=== PATIENT | female | born 1990 | race African-American/Black ===

== ENCOUNTER 2016-10-06 16:29 | Emergency (ER) | payer SELFPAY ==
[~2016-10-06] VITALS: Ht 154.9 cm; Wt 65.8 kg
[2016-10-06 17:45] VITALS: BP 125/65
[2016-10-06 18:06] LABS: BILIRUBIN,URINE NEGATIVE (NEG); GLUCOSE,URINE NEGATIVE (NEG); NITRITE,URINE NEGATIVE (NEG); PROTEIN,URINE NEGATIVE (NEG-TRACE); UROBILINOGEN,URINE 0.2 mg/dL (0.2 mg/dL)
[2016-10-06 18:33] LABS: BACTERIA,URINE FEW /HPF (0-FEW); SQUAMOUS EPITHELIAL CELL,UR OCC /LPF
[2016-10-06] MEDS ORDERED: NITR100C62 PO (18:59)
--- NOTE | 2016-10-06 18:59 | PHYS DOC ---
Past Medical History Past Medical History: UTI Past Surgical History: No Surgical History Alcohol Use: Rarely Drug Use: Marijuana Adult General Chief Complaint Chief Complaint: ABDOMINAL PAIN HPI HPI 25-year-old female presents with 2 day history of suprapubic discomfort. She states the pain radiates to her back. She denies any vaginal bleeding or discharge. Patient states she feels like she may have urinary tract infection. She denies any fever chills sweats nausea vomiting or flank pain.] Review of Systems Review of Systems Constitutional: Denies fever or chills [] Eyes: Denies change in visual acuity, redness, or eye pain [] HENT: Denies nasal congestion or sore throat [] Respiratory: Denies cough or shortness of breath [] Cardiovascular: No additional information not addressed in HPI [] GI: Per history of present illness [] : Denies dysuria or hematuria [] Musculoskeletal: Denies back pain or joint pain [] Integument: Denies rash or skin lesions [] Neurologic: Denies headache, focal weakness or sensory changes [] Endocrine: Denies polyuria or polydipsia [] Allergies Allergies Allergies Coded Allergies Type Severity Reaction Last Updated Verified Sulfa (Sulfonamide Antibiotics) Allergy Intermediate 05/01/15 Yes Physical Exam Physical Exam Constitutional: Well developed, well nourished, no acute distress, non-toxic appearance. [] HENT: Normocephalic, atraumatic, bilateral external ears normal, oropharynx moist, no oral exudates, nose normal. [] Eyes: PERRLA, EOMI, conjunctiva normal, no discharge. [] Neck: Normal range of motion, no tenderness, supple, no stridor. [] Cardiovascular:Heart rate regular rhythm, no murmur [] Lungs & Thorax: Bilateral breath sounds clear to auscultation [] Abdomen: Bowel sounds normal, soft, no tenderness, no masses, no pulsatile masses. [] Skin: Warm, dry, no erythema, no rash. [] Back: No tenderness, no CVA tenderness. [] Extremities: No tenderness, no cyanosis, no clubbing, ROM intact, no edema. [] Neurologic: Alert and oriented X 3, normal motor function, normal sensory function, no focal deficits noted. [] Psychologic: Affect normal, judgement normal, mood normal. [] Current Patient Data Vital Signs Vital Signs Date Time Temp Pulse Resp B/P Pulse Ox O2 Delivery O2 Flow Rate FiO2 10/06/16 17:45 98.9 67 20 125/65 100 Room Air 98.9 Lab Values Laboratory Tests Test 10/06/16 16:44 10/06/16 17:40 POC Urine HCG, Qualitative Hcg negative (Negative) Urine Color Yellow Urine Clarity Clear Urine pH 6.0 Urine Specific [place] <=1.005 Urine Protein Negativemg/dL (NEG-TRACE) Urine Glucose (UA) Negativemg/dL (NEG) Urine Ketones (Stick) Negativemg/dL (NEG) Urine Blood Large (NEG) Urine Nitrite Negative (NEG) Urine Bilirubin Negative (NEG) Urine Urobilinogen Dipstick 0.2mg/dL (0.2 mg/dL) Urine Leukocyte Esterase Moderate (NEG) Urine RBC 3-5/HPF (0-2) Urine WBC 5-10/HPF (0-4) Urine Squamous Epithelial Cells Occ/LPF Urine Bacteria Few/HPF (0-FEW) Urine Mucus Slight/LPF EKG EKG [] Radiology/Procedures Radiology/Procedures [] Course & Med Decision Making Course & Med Decision Making Pertinent Labs and Imaging studies reviewed. (See chart for details) [] Dragon Disclaimer Dragon Disclaimer This electronic medical record was generated, in whole or in part, using a voice recognition dictation system. Departure Departure Impression: Primary Impression: Urinary tract infection Disposition: 01 HOME, SELF-CARE Condition: STABLE Referrals: NO PCP (PCP) Patient Instructions: Urinary Tract Infection Additional Instructions: Thank you for allowing us to participate in your care today. Followup with your primary care physician in 3 days if your symptoms do not improve. Return to the emergency department you have any new or concerning findings. This should be evaluated by the primary care physician and any necessary consulting services for continued management within a few days after discharge. Return to emergency room if you have any new or concerning symptoms including but not limited to fever, chills, nausea, vomiting, intractable pain, any new rashes, chest pain, shortness of air, uncontrolled bleeding, difficulty breathing, and/or vision loss. You may have been prescribed medication that can change in your level of thinking and ability to operate machinery. These medications include hydrocodone and Ativan. Also, Benadryl has been known to do this as well. Be sure to check with your pharmacist and ask if the medications you've prescribed can affect your level of consciousness. I recommend not operating heavy machinery or driving while on medication such as these. Scripts Nitrofurantoin Monohyd/M-Cryst (Macrobid 100 Mg Capsule)100 Mg Capsule1 Cap PO BID UTI #10 CAP Prov:KUNAL SYED DO 10/06/16 Problem Qualifiers Primary Impression: Urinary tract infection Urinary tract infection type: acute cystitis Hematuria presence: without hematuria Qualified Code: N30.00 - Acute cystitis without hematuria KUNAL SYED DO Oct 06, 2016 18:59
== END 2016-10-06 19:07 | disposition home or self-care (01) ==
LOC: ER 16:29
DX: N30.00 Acute cystitis without hematuria (principal); F12.10 Cannabis abuse, uncomplicated; Z88.2 Allergy status to sulfonamides
CPT/HCPCS: 81001; 81025; 87086; 99284

== ENCOUNTER 2016-12-27 22:03 | Emergency (ER) | payer SELFPAY ==
[~2016-12-27] VITALS: Ht 154.9 cm; Wt 59.9 kg
[~2016-12-27 22:03] MED LIST: NITR100C62 PO
[2016-12-27 22:22] VITALS: BP 122/77
[2016-12-27] MEDS ORDERED: IV NORMAL SALINE 1000ML BAG 1,000 ML IV SCH (22:45)
[2016-12-27] MEDS ORDERED: 0.9 % SODIUM CHLORIDE 10 ML DISP.SYRIN. IV PRN (22:45)
[2016-12-27] MEDS ORDERED: HYDROmorphone 2 MG/ML VIAL IV/SQ PRN (22:45)
[2016-12-27 22:51] LABS: BILIRUBIN,URINE SMALL (NEG); GLUCOSE,URINE NEGATIVE (NEG); NITRITE,URINE NEGATIVE (NEG); PROTEIN,URINE 100 mg/dL (NEG-TRACE)
--- NOTE | 2016-12-27 22:51 | PHYS DOC ---
Past Medical History Past Medical History: No Pertinent History, UTI Past Surgical History: No Surgical History Alcohol Use: Rarely Drug Use: Marijuana Adult General Chief Complaint Chief Complaint: [facility] HPI Patient is a 26 year old Afro-[place] female with a history of abdominal pain for the last several months progressively getting worse now pain localized in the periumbilical and suprapubic region with some spotting and bleeding. Patient [facility] about 7 months ago before she began having pain 3 months ago. She was referred to an RETIREMENT MANAGER Dr. concepcion for evaluation who completed a pelvic examination demonstrated a particular findings. An ultrasound was ordered and completed several weeks later looking for the IUD that was apparently placed. According to the ultrasound read provided by family patient's IUD has migrated superiorly into the uterus. For this ultrasound the patient has had multiple pelvic exams multiple Pap smears with no apparent findings. Now her pain is gotten progressively worse describes a sharp stabbing. Umbilical he and over the suprapubic region with no UTI symptoms, no vomiting, no diarrhea, no vaginal bleeding or discharge that is new or changed. She denies fevers, chills or other symptoms other than mild back pain and nausea secondary to the pain. She does also complain that when she has her spots of pain she begins to have tingling and numbness in her feet and hands bilaterally that resolves spontaneously after some time. She has had sexual transmitted diseases in the past Chlamydia with a test of cure. On initial presentation differential diagnosis includes appendicitis, gallstones , small bowel section, UTI, pyonephritis, kidney stones, ectopic , ovarian torsion, pelvic inflammatory disease, cervicitis, pelvic trauma, vascular congestion syndrome Review of Systems Review of Systems Constitutional: Denies fever or chills [] Eyes: Denies change in visual acuity, redness, or eye pain [] HENT: Denies nasal congestion or sore throat [] Respiratory: Denies cough or shortness of breath [] Cardiovascular: No additional information not addressed in HPI [] GI: Legs of abdominal pain with nausea but no vomiting diarrhea or bloody stools. : Denies dysuria or hematuria she has had a little vaginal spotting after the exam. Musculoskeletal: Denies back pain or joint pain [] Integument: Denies rash or skin lesions [] Neurologic: Denies headache, focal weakness or sensory changes [] Endocrine: Denies polyuria or polydipsia [] Current Medications Current Medications Current Medications Medications (Trade) Dose Ordered Sig/Dangelo Start Time Stop Time Status Last Admin Dose Admin Hydromorphone HCl (Dilaudid) 1 mg PRN Q15MIN PRN 12/27/16 22:45 12/28/16 22:44 12/27/16 23:07 1 MG Info (Do NOT chart on this entry -- for MONITORING) 1 each PRN DAILY PRN 12/27/16 23:30 12/29/16 23:29 Iohexol (Omnipaque 300 Mg/ml) 75 ml 1X ONCE 12/27/16 23:30 12/27/16 23:31 DC Ondansetron HCl (Zofran) 4 mg 1X ONCE 12/27/16 23:00 12/27/16 23:01 DC 12/27/16 23:07 4 MG Sodium Chloride (Normal Saline Flush) 10 ml QSHIFT PRN 12/27/16 22:45 Allergies Allergies Allergies Coded Allergies Type Severity Reaction Last Updated Verified Sulfa (Sulfonamide Antibiotics) Allergy Intermediate 05/01/15 Yes Physical Exam Physical Exam Constitutional: Well developed, well nourished, no acute distress, non-toxic appearance. [] HENT: Normocephalic, atraumatic, bilateral external ears normal, oropharynx moist, Eyes: PERRLA, EOMI, conjunctiva normal, no discharge. [] Neck: Normal range of motion, no tenderness, supple, no stridor. [] Cardiovascular:Heart rate regular rhythm, no murmur [] Lungs & Thorax: Bilateral breath sounds clear to auscultation [] Abdomen: Bowel sounds normal, soft abdomen but tender along the periumbilical region and over the umbilicus. With no obvious signs of deformity Skin: Warm, dry, no erythema, no rash. [] Back: No tenderness, no CVA tenderness. [] Extremities: No tenderness, no cyanosis, no clubbing, ROM intact, no edema. [] Neurologic: Alert and oriented X 3, normal motor function, normal sensory function, no focal deficits noted. [] Psychologic: Affect normal, judgement normal, mood normal. [] Current Patient Data Vital Signs Vital Signs Date Time Temp Pulse Resp B/P (MAP) Pulse Ox O2 Delivery O2 Flow Rate FiO2 12/27/16 22:22 98.6 95 18 122/77 (92) 98 Room Air 98.6 Lab Values Laboratory Tests Test 12/27/16 21:27 12/27/16 22:15 12/27/16 23:00 POC Urine HCG, Qualitative Hcg negative (Negative) Urine Collection Type Unknown Urine Color Juliana Urine Clarity Cloudy Urine pH 6.0 Urine Specific [place] >=1.030 Urine Protein 100 mg/dL (NEG-TRACE) Urine Glucose (UA) Negative mg/dL (NEG) Urine Ketones (Stick) Trace mg/dL (NEG) Urine Blood Large (NEG) Urine Nitrite Negative (NEG) Urine Bilirubin Small (NEG) Urine Urobilinogen Dipstick 1.0 mg/dL (0.2 mg/dL) Urine Leukocyte Esterase Large (NEG) Urine RBC Tntc /HPF (0-2) Urine WBC Tntc /HPF (0-4) Urine Squamous Epithelial Cells Occ /LPF Urine Bacteria Moderate /HPF (0-FEW) Urine Mucus Slight /LPF White Blood Count 7.3 x10^3/uL (4.0-11.0) Red Blood Count 3.91 x10^6/uL (3.50-5.40) Hemoglobin 11.4 g/dL (12.0-15.5) L Hematocrit 34.3 % (36.0-47.0) L Mean Corpuscular Volume 88 fL (79-100) Mean Corpuscular Hemoglobin 29 pg (25-35) Mean Corpuscular Hemoglobin Concent 33 g/dL (31-37) Red Cell Distribution Width 13.9 % (11.5-14.5) Platelet Count 310 x10^3/uL (140-400) Neutrophils (%) (Auto) 47 % (31-73) Lymphocytes (%) (Auto) 37 % (24-48) Monocytes (%) (Auto) 10 % (0-9) H Eosinophils (%) (Auto) 6 % (0-3) H Basophils (%) (Auto) 1 % (0-3) Neutrophils # (Auto) 3.4 x10^3uL (1.8-7.7) Lymphocytes # (Auto) 2.7 x10^3/uL (1.0-4.8) Monocytes # (Auto) 0.7 x10^3/uL (0.0-1.1) Eosinophils # (Auto) 0.4 x10^3/uL (0.0-0.7) Basophils # (Auto) 0.1 x10^3/uL (0.0-0.2) Sodium Level 141 mmol/L (136-145) Potassium Level 3.5 mmol/L (3.5-5.1) Chloride Level 106 mmol/L (98-107) Carbon Dioxide Level 27 mmol/L (21-32) Anion Gap 8 (6-14) Blood Urea Nitrogen 12 mg/dL (7-20) Creatinine 1.1 mg/dL (0.6-1.0) H Estimated GFR (Cockcroft-Gault) 73.8 BUN/Creatinine Ratio 11 (6-20) Glucose Level 83 mg/dL (70-99) Calcium Level 8.7 mg/dL (8.5-10.1) Total Bilirubin 0.3 mg/dL (0.2-1.0) Aspartate Amino Transferase (AST) 12 U/L (15-37) L Alanine Aminotransferase (ALT) 14 U/L (14-59) Alkaline Phosphatase 61 U/L (46-116) Total Protein 7.3 g/dL (6.4-8.2) Albumin 3.7 g/dL (3.4-5.0) Albumin/Globulin Ratio 1.0 (1.0-1.7) Lipase 107 U/L (73-393) Laboratory Tests 12/27/16 23:00 Laboratory Tests 12/27/16 23:00 EKG EKG [] Radiology/Procedures Radiology/Procedures [facility] [address] [place], [place] [id number] IMAGING REPORT Signed PATIENT: LILLY MORAN ACCOUNT: [id number] : 1990 LOCATION: ER AGE: 26 SEX: F EXAM STATUS: REG ER ORD. PHYSICIAN: DAGOBERTO HERZOG MD REASON: diffuse lower abdominal pain PROCEDURE: CT ABD PELV W/ IV CONTRST ONLY CT abdomen and pelvis with contrast: Reason for examination: Diffuse low abdominal pain for 2 months. Displaced IUD on 12/25/2016. Helical images were obtained through the abdomen and pelvis with intravenous administration of 75 cc Omnipaque 300. Reconstruction was performed in sagittal and coronal planes. Exposure: One or more of the following individualized dose reduction techniques were utilized for this examination: 1. Automated exposure control 2. Adjustment of the mA and/or kV according to patient size 3. Use of iterative reconstruction technique. The lung bases are clear. The heart size is normal with no pericardial effusion. No abnormalities seen of the liver, spleen, gallbladder, adrenal glands or pancreas. The kidneys show no renal masses, hydronephrosis, renal calculi or evidence of obstructive uropathy. The abdominal aorta and inferior vena cava show no abnormalities. There are no abnormally dilated loops of bowel or thickened bowel viveros. There is no evidence of bowel obstruction. There is no evidence of diverticulosis or diverticulitis. No abnormality seen at the bladder. An IUD is present within the endometrial cavity. There does appear to be some fluid within the endometrial cavity. There are a few small follicles in the ovaries. No free fluid is seen. No acute bony abnormalities are evident. IMPRESSION: IUD within the endometrial cavity. Fluid within endometrial cavity. No other abnormality seen in the abdomen or pelvis. Electronically signed by: Viv Finney MD (12/28/2016 12:35 AM) [] Course & Med Decision Making Course & Med Decision Making Pertinent Labs and Imaging studies reviewed. (See chart for details) Patient presents with crampy abdominal pain for some months with an IUD that may be misplaced. He was concerning presentation for possible ectopic . IUD is no longer functioning as it normally should be is a physical barrier. At this point patient's abdominal pain is localized suprapubically with no clear UTI symptoms no vaginal discharge at this time. Patient is one to know where the IUD was. CT scan result revealed IUD. In the uterus migrating from its location within the cervix to an area inside the uterus. There is some homogeneous fluid around this particular IUD which may explain why she has spotting intermittently. Patient's white count is normal urinalysis reveals white blood cells, bacteria and leuk esterase consistent with a UTI. Given suprapubic pain patient is suffered from I will treat her with empiric antibiotics. I also advised her to follow-up with her RETIREMENT MANAGER doctor Tara to help physically remove this IUD that is no longer in the right location. Impression abdominal pain likely secondary to IUD migration into the uterus and UTI. Treatment plan Lortab, Mitra, Luis, PCP follow-up with referral to OB/ [employer] immediately. Disposition: Discussed with family at bedside RETIREMENT MANAGER referral 24-48 hours for immediate evaluation for possible operative removal of IUD. [] Dragon Disclaimer Dragon Disclaimer This electronic medical record was generated, in whole or in part, using a voice recognition dictation system. Departure Departure Impression: Primary Impression: Urinary tract infection Additional Impressions: Foreign body in uterus, any part Abdominal pain Disposition: HOME, SELF-CARE Condition: IMPROVED Referrals: NO PCP (PCP) Patient Instructions: Abdominal Pain, Urinary Tract Infection Additional Instructions: These follow-up with her RETIREMENT MANAGER in 24-48 hours for immediate evaluation and removal of the IUD. Please return for any new or increasing symptoms like pain out of proportion on exam fevers greater 102.2 despite treatment or if you have any questions or concerns. Problem Qualifiers DAGOBERTO HERZOG MD Dec 27, 2016 22:51
[2016-12-27 23:00] LABS: RBC,URINE TNTC /HPF (0-2)
[2016-12-27] MEDS ORDERED: ONDANSETRON PF 4 MG/2 ML VIAL. IV ONE (23:00)
[2016-12-27 23:01] LABS: BACTERIA,URINE MODERATE /HPF (0-FEW); SQUAMOUS EPITHELIAL CELL,UR OCC /LPF; WBC,URINE TNTC /HPF (0-4)
[2016-12-27 23:24] LABS: BASO # 0.1 x10^3/uL (0.0-0.2); BASO % 1 % (0-3); EOS % 6 % (0-3); HEMATOCRIT 34.3 % (36.0-47.0); HEMOGLOBIN 11.4 g/dL (12.0-15.5); LYMPH # 2.7 x10^3/uL (1.0-4.8); LYMPH % 37 % (24-48); MEAN CORPUSCULAR HEMOGLOBIN 29 pg (25-35); MEAN CORPUSCULAR HGB CONC 33 g/dL (31-37); MEAN CORPUSCULAR VOLUME 88 fL (79-100); MONO % 10 % (0-9); NEUT % 47 % (31-73); PLATELET COUNT 310 x10^3/uL (140-400); RED BLOOD COUNT 3.91 x10^6/uL (3.50-5.40); RED CELL DISTRIBUTION WIDTH 13.9 % (11.5-14.5); WHITE BLOOD COUNT 7.3 x10^3/uL (4.0-11.0)
[2016-12-27] MEDS ORDERED: IOHEXOL 300 MG/ML 75 ML VIAL IV ONE (23:30)
[2016-12-27] MEDS ORDERED: CONTRAST GIVEN MC PRN (23:30)
[2016-12-27 23:39] LABS: CALCIUM 8.7 mg/dL (8.5-10.1); CREATININE 1.1 mg/dL (0.6-1.0); GFR 73.8; POTASSIUM 3.5 mmol/L (3.5-5.1)
[2016-12-27 23:44] LABS: ALBUMIN 3.7 g/dL (3.4-5.0); TOTAL BILIRUBIN 0.3 mg/dL (0.2-1.0); TOTAL PROTEIN 7.3 g/dL (6.4-8.2)
--- NOTE | 2016-12-28 00:38 | RAD ---
CT abdomen and pelvis with contrast: Reason for examination: Diffuse low abdominal pain for 2 months. Displaced IUD on 12/25/2016. Helical images were obtained through the abdomen and pelvis with intravenous administration of 75 cc Omnipaque 300. Reconstruction was performed in sagittal and coronal planes. Exposure: One or more of the following individualized dose reduction techniques were utilized for this examination: 1. Automated exposure control 2. Adjustment of the mA and/or kV according to patient size 3. Use of iterative reconstruction technique. The lung bases are clear. The heart size is normal with no pericardial effusion. No abnormalities seen of the liver, spleen, gallbladder, adrenal glands or pancreas. The kidneys show no renal masses, hydronephrosis, renal calculi or evidence of obstructive uropathy. The abdominal aorta and inferior vena cava show no abnormalities. There are no abnormally dilated loops of bowel or thickened bowel viveros. There is no evidence of bowel obstruction. There is no evidence of diverticulosis or diverticulitis. No abnormality seen at the bladder. An IUD is present within the endometrial cavity. There does appear to be some fluid within the endometrial cavity. There are a few small follicles in the ovaries. No free fluid is seen. No acute bony abnormalities are evident. IMPRESSION: IUD within the endometrial cavity. Fluid within endometrial cavity. No other abnormality seen in the abdomen or pelvis. Electronically signed by: Viv Finney MD (12/28/2016 12:35 AM)
[2016-12-28] MEDS ORDERED: CIPR500T94 PO (01:04)
[2016-12-28] MEDS ORDERED: HYDR-2758 PO (01:04)
[2016-12-28] MEDS ORDERED: PHEN-318 PO (01:04)
== END 2016-12-28 01:14 | disposition home or self-care (01) ==
LOC: ER 22:03
DX: T19.3XXA Foreign body in uterus, initial encounter (principal); N39.0 Urinary tract infection, site not specified; Z88.1 Allergy status to other antibiotic agents; Z97.5 Presence of (intrauterine) contraceptive device; X58.XXXA Exposure to other specified factors, initial encounter; Y93.89 Activity, other specified; Y92.89 Other specified places as the place of occurrence of the external cause; Y99.8 Other external cause status
CPT/HCPCS: 36415; 74177; 80053; 81001; 81025; 83690; 85027; 87086; 96361; 96374; 96375; 99285; J1170; J2405; J7030

== ENCOUNTER 2017-08-21 12:07 | Emergency (ER) | payer OTHER ==
[2017-08-21 12:44] LABS: ADD MAN DIFF? NO
[2017-08-21 12:44] LABS: URINE HCG POC HCG NEGATIVE (Negative)
[2017-08-21 12:47] LABS: BILIRUBIN,URINE SMALL (NEG); CLARITY,URINE TURBID; COLOR,URINE RED; GLUCOSE,URINE NEGATIVE (NEG); NITRITE,URINE POSITIVE (NEG); PH,URINE 6.5; PROTEIN,URINE >=300 mg/dL (NEG-TRACE)
[2017-08-21 12:48] LABS: BASO # 0.1 x10^3/uL (0.0-0.2); BASO % 0 % (0-3); EOS # 0.1 x10^3/uL (0.0-0.7); EOS % 1 % (0-3); LYMPH # 1.4 x10^3/uL (1.0-4.8); LYMPH % 12 % (24-48); MEAN CORPUSCULAR HEMOGLOBIN 31 pg (25-35); MEAN CORPUSCULAR HGB CONC 33 g/dL (31-37); MEAN CORPUSCULAR VOLUME 92 fL (79-100); MONO # 0.6 x10^3/uL (0.0-1.1); MONO % 5 % (0-9); NEUT # 9.7 x10^3uL (1.8-7.7); NEUT % 82 % (31-73); PLATELET COUNT 254 x10^3/uL (140-400); RED BLOOD COUNT 3.91 x10^6/uL (3.50-5.40); RED CELL DISTRIBUTION WIDTH 12.9 % (11.5-14.5); WHITE BLOOD COUNT 11.7 x10^3/uL (4.0-11.0)
[2017-08-21] MEDS: KETOROLAC 15 MG/ML VIAL. IV (12:48)
[2017-08-21] MEDS: ONDANSETRON PF 4 MG/2 ML VIAL. IV (12:48)
[2017-08-21] MEDS: IV NORMAL SALINE 1000ML BAG 1,000 ML IV (12:48)
[2017-08-21 13:00] LABS: ANION GAP 10 (6-14); BLOOD UREA NITROGEN 10 mg/dL (7-20); BUN/CREATININE RATIO 11 (6-20); CALCIUM 8.8 mg/dL (8.5-10.1); CARBON DIOXIDE 26 mmol/L (21-32); CHLORIDE 106 mmol/L (98-107); CREATININE 0.9 mg/dL (0.6-1.0); GFR 93.1; GLUCOSE 93 mg/dL (70-99); POTASSIUM 3.3 mmol/L (3.5-5.1); SODIUM 142 mmol/L (136-145)
[2017-08-21 13:01] LABS: RBC,URINE >40 /HPF (0-2)
[2017-08-21 13:02] LABS: BACTERIA,URINE FEW /HPF (0-FEW); SQUAMOUS EPITHELIAL CELL,UR MOD /LPF; WBC,URINE >40 /HPF (0-4)
[2017-08-21 13:08] LABS: ALBUMIN 4.1 g/dL (3.4-5.0); ALBUMIN/GLOBULIN RATIO 1.2 (1.0-1.7); ALK PHOS 54 U/L (46-116); ALT (SGPT) 10 U/L (14-59); AST (SGOT) 14 U/L (15-37); LIPASE 67 U/L (73-393); TOTAL BILIRUBIN 0.5 mg/dL (0.2-1.0); TOTAL PROTEIN 7.5 g/dL (6.4-8.2)
== END 2017-08-21 14:57 | disposition home or self-care (01) ==
LOC: ER 12:07
DX: N39.0 Urinary tract infection, site not specified (principal); F12.10 Cannabis abuse, uncomplicated; I10 Essential (primary) hypertension; E11.9 Type 2 diabetes mellitus without complications; Z87.440 Personal history of urinary (tract) infections; Z88.2 Allergy status to sulfonamides
CPT/HCPCS: 36415; 74176; 80053; 81001; 81025; 83690; 85025; 87086; 87186; 96365; 96375; 99285-25; J0690; J1885; J2405; J7030

== ENCOUNTER 2018-08-01 02:47 | Observation (INO) | payer OTHER ==
[2017-08-21 14:12] VITALS: BP 107/62
[~2018-08-01 02:47] MED LIST changes: +CEPH-264 PO; +CIPR500T94 PO; +HYDR-2761 PO; +IBUP-1007 PO; +ONDA4TAB10 SL; +PHEN-318 PO
[2018-08-01] MEDS ORDERED: IV RINGERS,LACTATED 1000ML 1,000 ML IV SCH (02:49)
[2018-08-01] MEDS ORDERED: ACETAMINOPHEN 325 MG TABLET. PO PRN (03:00)
[2018-08-01] MEDS ORDERED: ONDANSETRON PF 4 MG/2 ML VIAL. IV PRN (03:00)
[2018-08-01 03:24] LABS: BILIRUBIN,URINE NEGATIVE (NEG); CLARITY,URINE CLEAR; COLOR,URINE YELLOW; NITRITE,URINE NEGATIVE (NEG); PROTEIN,URINE NEGATIVE (NEG-TRACE); UROBILINOGEN,URINE 0.2 mg/dL (0.2 mg/dL)
[2018-08-01 03:30] LABS: BARBITURATES NEG (NEG); BENZODIAZEPINES NEG (NEG); CANNABINOIDS NEG (NEG); COCAINE NEG (NEG); METHADONE NEG (NEG); OPIATES NEG (NEG); PHENCYCLIDINE NEG (NEG)
[2018-08-01 03:45] LABS: AMPHETAMINE/METHAMPHETAMINE NEG (NEG)
[2018-08-01 03:47] LABS: BACTERIA,URINE FEW /HPF (0-FEW); RBC,URINE 0 /HPF (0-2); SQUAMOUS EPITHELIAL CELL,UR MOD /LPF
== END 2018-08-01 05:32 | disposition home or self-care (01) ==
LOC: 3 SO LND 02:47
PROVIDERS: ADMIT Specialist; ATTEND Specialist
DX: O62.9 Abnormality of forces of labor, unspecified (principal); Z3A.38 38 weeks gestation of pregnancy
CPT/HCPCS: 80307; 81001; 87086; G0378; G0379

== ENCOUNTER 2019-03-15 17:32 | Emergency (ER) | payer SELFPAY ==
[~2019-03-15] VITALS: Ht 154.9 cm; Wt 64.4 kg
[2019-03-15 17:57] LABS: BILIRUBIN,URINE SMALL (NEG); CLARITY,URINE CLEAR; COLOR,URINE YELLOW; NITRITE,URINE NEGATIVE (NEG); PROTEIN,URINE NEGATIVE (NEG-TRACE)
[2019-03-15 18:22] LABS: BASO # 0.1 x10^3/uL (0.0-0.2); BASO % 1 % (0-3); EOS # 0.2 x10^3/uL (0.0-0.7); EOS % 3 % (0-3); HEMATOCRIT 36.7 % (36.0-47.0); HEMOGLOBIN 12.2 g/dL (12.0-15.5); LYMPH # 1.9 x10^3/uL (1.0-4.8); LYMPH % 31 % (24-48); MEAN CORPUSCULAR HEMOGLOBIN 30 pg (25-35); MEAN CORPUSCULAR HGB CONC 33 g/dL (31-37); MEAN CORPUSCULAR VOLUME 91 fL (79-100); MONO # 0.5 x10^3/uL (0.0-1.1); MONO % 8 % (0-9); NEUT # 3.4 x10^3/uL (1.8-7.7); NEUT % 56 % (31-73); PLATELET COUNT 243 x10^3/uL (140-400); RED BLOOD COUNT 4.03 x10^6/uL (3.50-5.40); RED CELL DISTRIBUTION WIDTH 13.4 % (11.5-14.5); WHITE BLOOD COUNT 6.1 x10^3/uL (4.0-11.0)
[2019-03-15 18:22] LABS: BACTERIA,URINE 0 /HPF (0-FEW); BARBITURATES NEG (NEG); BENZODIAZEPINES NEG (NEG); CANNABINOIDS POS (NEG); COCAINE NEG (NEG); METHADONE NEG (NEG); OPIATES NEG (NEG); PHENCYCLIDINE NEG (NEG); RBC,URINE 0 /HPF (0-2); SQUAMOUS EPITHELIAL CELL,UR OCC /LPF
[2019-03-15 18:23] LABS: AMPHETAMINE/METHAMPHETAMINE NEG (NEG)
[2019-03-15 18:38] LABS: CALCIUM 8.8 mg/dL (8.5-10.1); CREATININE 0.8 mg/dL (0.6-1.0); GFR 104.9; POTASSIUM 3.9 mmol/L (3.5-5.1)
[2019-03-15 18:43] LABS: ALBUMIN 3.7 g/dL (3.4-5.0); ALBUMIN/GLOBULIN RATIO 1.1 (1.0-1.7); TOTAL BILIRUBIN 0.2 mg/dL (0.2-1.0)
[2019-03-15 19:16] VITALS: BP 97/51
--- NOTE | 2019-03-15 19:20 | RAD ---
Exam: Ultrasound OB less than 14 weeks Indication: Left lower quadrant drain Technique: Real-time grayscale and color Doppler images of the pelvis were obtained by the department market research manager. Comparisons: None FINDINGS: Uterus measures 7.6 x 6.1 x 3.4 cm. Uterus is retroverted. Endometrium measures 1.4 cm in thickness. No gestational sac, pole or yolk sac identified. Right ovary measures 2.5 x 3.1 x 1.7 cm Left ovary measures 3.9 x 3.2 x 2.5 cm. Likely corpus luteum identified within the left ovary. Arterial flow identified within the ovaries bilaterally. IMPRESSION: 1. No pole, yolk sac or gestational sac identified. In the setting of a positive test the differential considerations include an early IUP, failed IUP or nonvisualized ectopic. Recommend correlation with serial beta hCG measurements and short-term follow-up ultrasound. 2. Normal sonographic appearance of the ovaries. Electronically signed by: Viridiana Olmos MD (03/15/2019 7:17 PM) [facility]
[2019-03-15] MEDS ORDERED: CEPH500C PO (19:36)
--- NOTE | 2019-03-15 19:37 | PHYS DOC ---
Past Medical History Past Medical History: No Pertinent History, UTI (ELENITA JOINER APRN) Past Surgical History: No Surgical History (ELENITA JOINER APRN) Alcohol Use: Rarely Drug Use: Marijuana (ELENITA JOINER APRN) Adult General Chief Complaint Chief Complaint: ABDOMINAL PAIN IN HPI HPI Patient is a 28 year old female 2 para 1 who presents to the ED today complaining of 6 out of 10 left low quadrant abdominal pain that began a week ago. Patient denies any fever, nausea, vomiting, vaginal bleeding. She states her last menstrual cycle was February 07, 2019. She states she just found out yesterday she is hence would like to be checked out to make sure her ba by is okay. (ELENITA JOINER APRN) Review of Systems Review of Systems Constitutional: Denies fever or chills [] Eyes: Denies change in visual acuity, redness, or eye pain [] HENT: Denies nasal congestion or sore throat [] Respiratory: Denies cough or shortness of breath [] Cardiovascular: No additional information not addressed in HPI [] GI: Reports left lower ointment abdominal pain in , denies nausea, vomiting, bloody stools or diarrhea [] : Denies dysuria or hematuria [] Musculoskeletal: Denies back pain or joint pain [] Integument: Denies rash or skin lesions [] Neurologic: Denies headache, focal weakness or sensory changes [] All other systems were reviewed and found to be within normal limits, except as documented in this note. (ELENITA JOINER APRN) Allergies Allergies Allergies Coded Allergies Type Severity Reaction Last Updated Verified Sulfa (Sulfonamide Antibiotics) Allergy Intermediate 05/01/15 Yes (JOE TORRES MD) Physical Exam Physical Exam Constitutional: Well developed, well nourished, no acute distress, non-toxic appearance. [] HENT: Normocephalic, atraumatic, bilateral external ears normal, oropharynx moist, no oral exudates, nose normal. [] Eyes: PERRLA, EOMI, conjunctiva normal, no discharge. [] Neck: Normal range of motion, no tenderness, supple, no stridor. [] Cardiovascular:Heart rate regular rhythm, no murmur [] Lungs & Thorax: Bilateral breath sounds clear to auscultation [] Abdomen: Bowel sounds normal, soft, no tenderness, no masses, no pulsatile masses. [] Skin: Warm, dry, no erythema, no rash. [] Back: No tenderness, no CVA tenderness. [] Extremities: No tenderness, no cyanosis, no clubbing, ROM intact, no edema. [] Neurologic: Alert and oriented X 3, normal motor function, normal sensory function, no focal deficits noted. [] Psychologic: Affect normal, judgement normal, mood normal. [] (ELENITA JOINER APRN) Current Patient Data Vital Signs Vital Signs Date Time Temp Pulse Resp B/P (MAP) Pulse Ox O2 Delivery O2 Flow Rate FiO2 03/15/19 19:16 78 14 97/51 (66) 99 Room Air 03/15/19 17:42 98.8 98.8 (JOE TORRES MD) Lab Values Laboratory Tests Test 03/15/19 17:49 03/15/19 17:50 03/15/19 18:18 POC Urine HCG, Qualitative Hcg positive (Negative) Urine Color Yellow Urine Clarity Clear Urine pH 5.0 Urine Specific [place] >=1.030 Urine Protein Negative mg/dL (NEG-TRACE) Urine Glucose (UA) Negative mg/dL (NEG) Urine Ketones (Stick) Negative mg/dL (NEG) Urine Blood Negative (NEG) Urine Nitrite Negative (NEG) Urine Bilirubin Small (NEG) Urine Urobilinogen Dipstick 1.0 mg/dL (0.2 mg/dL) Urine Leukocyte Esterase Small (NEG) Urine RBC 0 /HPF (0-2) Urine WBC 1-4 /HPF (0-4) Urine Squamous Epithelial Cells Occ /LPF Urine Bacteria 0 /HPF (0-FEW) Urine Mucus Mod /LPF Urine Opiates Screen Neg (NEG) Urine Methadone Screen Neg (NEG) Urine Barbiturates Neg (NEG) Urine Phencyclidine Screen Neg (NEG) Urine Amphetamine/Methamphetamine Neg (NEG) Urine Benzodiazepines Screen Neg (NEG) Urine Cocaine Screen Neg (NEG) Urine Cannabinoids Screen Pos (NEG) Urine Ethyl Alcohol Neg (NEG) White Blood Count 6.1 x10^3/uL (4.0-11.0) Red Blood Count 4.03 x10^6/uL (3.50-5.40) Hemoglobin 12.2 g/dL (12.0-15.5) Hematocrit 36.7 % (36.0-47.0) Mean Corpuscular Volume 91 fL (79-100) Mean Corpuscular Hemoglobin 30 pg (25-35) Mean Corpuscular Hemoglobin Concent 33 g/dL (31-37) Red Cell Distribution Width 13.4 % (11.5-14.5) Platelet Count 243 x10^3/uL (140-400) Neutrophils (%) (Auto) 56 % (31-73) Lymphocytes (%) (Auto) 31 % (24-48) Monocytes (%) (Auto) 8 % (0-9) Eosinophils (%) (Auto) 3 % (0-3) Basophils (%) (Auto) 1 % (0-3) Neutrophils # (Auto) 3.4 x10^3/uL (1.8-7.7) Lymphocytes # (Auto) 1.9 x10^3/uL (1.0-4.8) Monocytes # (Auto) 0.5 x10^3/uL (0.0-1.1) Eosinophils # (Auto) 0.2 x10^3/uL (0.0-0.7) Basophils # (Auto) 0.1 x10^3/uL (0.0-0.2) Maternal Serum HCG Beta Subunit 71 mIU/mL (0-5) H Sodium Level 142 mmol/L (136-145) Potassium Level 3.9 mmol/L (3.5-5.1) Chloride Level 107 mmol/L (98-107) Carbon Dioxide Level 26 mmol/L (21-32) Anion Gap 9 (6-14) Blood Urea Nitrogen 11 mg/dL (7-20) Creatinine 0.8 mg/dL (0.6-1.0) Estimated GFR (Cockcroft-Gault) 104.9 BUN/Creatinine Ratio 14 (6-20) Glucose Level 86 mg/dL (70-99) Calcium Level 8.8 mg/dL (8.5-10.1) Total Bilirubin 0.2 mg/dL (0.2-1.0) Aspartate Amino Transferase (AST) 11 U/L (15-37) L Alanine Aminotransferase (ALT) 10 U/L (14-59) L Alkaline Phosphatase 59 U/L (46-116) Total Protein 7.0 g/dL (6.4-8.2) Albumin 3.7 g/dL (3.4-5.0) Albumin/Globulin Ratio 1.1 (1.0-1.7) Ethyl Alcohol Level < 10 mg/dL (0-10) Laboratory Tests 03/15/19 18:18 Laboratory Tests 03/15/19 18:18 Microbiology 03/15/19 Urine Culture - Final, Complete 03/15/19 Urine Culture Result 1 (LINUS) - Final, Complete (JOE TORRES MD) EKG EKG [] (ELENITA JOINER APRN) Radiology/Procedures Radiology/Procedures []PROCEDURE: OB TRANSVAG Exam: Ultrasound OB less than 14 weeks Indication: Left lower quadrant drain Technique: Real-time grayscale and color Doppler images of the pelvis were obtained by the department commissary superintendent. Comparisons: None FINDINGS: Uterus measures 7.6 x 6.1 x 3.4 cm. Uterus is retroverted. Endometrium measures 1.4 cm in thickness. No gestational sac, pole or yolk sac identified. Right ovary measures 2.5 x 3.1 x 1.7 cm Left ovary measures 3.9 x 3.2 x 2.5 cm. Likely corpus luteum identified within the left ovary. Arterial flow identified within the ovaries bilaterally. IMPRESSION: 1. No pole, yolk sac or gestational sac identified. In the setting of a positive test the differential considerations include an early IUP, failed IUP or nonvisualized ectopic. Recommend correlation with serial beta hCG measurements and short-term follow-up ultrasound. 2. Normal sonographic appearance of the ovaries. Electronically signed by: Viridiana Love MD (03/15/2019 7:17 PM) [facility] DICTATED and SIGNED BY: VIRIDIANA LOVE MD DATE: 03/15/191916 (ELENITA JOINER APRN) Course & Med Decision Making Course & Med Decision Making Pertinent Labs and Imaging studies reviewed. (See chart for details) This is a 28-year-old female patient 2 para 1 who presents to the ED today complaining of abdominal pain in . Positive urine hCG, beta-hCG 71. CBC, CMP-no acute findings. OB ultrasound was not able to visualize an IUP due to multiple reasons including an early IUP, failed , nonvisualized ectopic . Considering her beta hCG this is likely an early IUP. Patient will follow-up with an AERODYNAMICS PROFESSOR for serial beta hCGs. Urine noted for UTI. Discharge and cephalexin. (ELENITA JOINER APRN) Course & Med Decision Making Staff Physician Addendum: I was working in the ER during the course of this patient's visit. I was avai lable for consultation as needed, but I was not directly involved in the care of this patient. (JOE TORRES MD) Dragon Disclaimer Dragon Disclaimer This electronic medical record was generated, in whole or in part, using a voice recognition dictation system. (ELENITA JOINER APRN) Departure Departure Impression: Primary Impression: Urinary tract infection Additional Impression: Abdominal pain in Disposition: HOME, SELF-CARE Condition: STABLE Referrals: NO PCP (PCP) DANIEL FUNK MD follow up this week Patient Instructions: Abdominal Pain During , Urinary Tract Infection Additional Instructions: You were evaluated in the emergency for abdominal pain in . You also have urinary tract infection, we put you on antibiotics, take them as prescribed until completed. You can take Tylenol for pain. Follow up with your AERODYNAMICS PROFESSOR in the course of this week. Come back to the ED at any point symptoms worsen. Scripts Cephalexin (CEPHALEXIN) 500 Mg Capsule 1 CAP PO BID, #14 CAP Prov: ELENITA JOINER APRN 03/15/19 Problem Qualifiers Primary Impression: Urinary tract infection Urinary tract infection type: site unspecified Hematuria presence: without hematuria Qualified Codes: N39.0 - Urinary tract infection, site not specified Additional Impression: Abdominal pain in Trimester: first trimester Qualified Codes: O26.891 - Other specified related conditions, first trimester; R10.9 - Unspecified abdominal pain ELENITA JOINER APRN Mar 15, 2019 19:36 JOE TORRES MD Mar 19, 2019 05:24
== END 2019-03-15 20:10 | disposition home or self-care (01) ==
LOC: ER 17:32
DX: O23.41 Unspecified infection of urinary tract in pregnancy, first trimester (principal); Z88.2 Allergy status to sulfonamides; Z3A.00 Weeks of gestation of pregnancy not specified
CPT/HCPCS: 36415; 76817; 80053; 80307; 81001; 81025; 84702; 85025; 87086; 99285; G0480

== ENCOUNTER → 2019-12-30 | Outpatient (CLI) | payer OTHER ==
[~2019-12-30] MED LIST changes: +CEPH500C PO
== END ==
LOC: SPEC 14:05
PROVIDERS: ATTEND Obstetrics & Gynecology
DX: N89.8 Other specified noninflammatory disorders of vagina (principal)
CPT/HCPCS: Q0111

== ENCOUNTER → 2020-11-09 | Outpatient (CLI) | payer OTHER | LOC: SPEC 14:56 | PROVIDERS: ATTEND Obstetrics & Gynecology | DX: N89.8 Other specified noninflammatory disorders of vagina (principal) | CPT/HCPCS: Q0111 ==

== ENCOUNTER 2021-01-20 17:43 | Emergency (ER) | payer OTHER ==
[~2021-01-20] VITALS: Ht 154.9 cm; Wt 71.0 kg
[2021-01-20 18:17] VITALS: BP 131/84
[2021-01-20] MEDS ORDERED: IV NORMAL SALINE 1000ML BAG 1,000 ML IV ONE (18:30)
[2021-01-20] MEDS ORDERED: PROCHLORPERAZINE 10 MG/2 ML VIAL. IV ONE (18:30)
[2021-01-20] MEDS ORDERED: KETOROLAC 15 MG/ML VIAL. IVP ONE (18:30)
[2021-01-20] MEDS ORDERED: diphenhydrAMINE 50 MG/ML VIAL IVP ONE (18:30)
--- NOTE | 2021-01-20 18:36 | ED.ADGEN ---
Past Medical History Past Medical History: No Pertinent History Past Surgical History: No Surgical History Smoking Status: Current Every Day Smoker Alcohol Use: Occasionally Drug Use: Marijuana General Adult EDM: Chief Complaint: MULTIPLE COMPLAINTS HPI: HPI: Patient is a 30 year old female coming in for multiple complaints. Patient states that earlier today she began having a headache was gradual onset on the right side. Describes it as throbbing associated with photophobia. Has lately right side of her face is tingling. Also complaining of shortness of breath, and abdominal bloating. Patient states she has been constipated. Last bowel movement yesterday and she describes it as a "rough" that she is also having mild vaginal discharge. Review of Systems: Review of Systems: All other systems within normal limits except for as noted in the HPI Current Medications: Current Medications Medications (Trade) Dose Ordered Sig/Dangelo Start Time Stop Time Status Last Admin Dose Admin Diphenhydramine HCl (Benadryl) 50 mg 1X ONCE 01/20/21 18:30 01/20/21 18:31 DC 01/20/21 18:51 50 MG Ketorolac Tromethamine (Toradol 15mg Vial) 15 mg 1X ONCE 01/20/21 18:30 01/20/21 18:31 DC 01/20/21 18:51 15 MG Prochlorperazine Edisylate (Compazine) 10 mg 1X ONCE 01/20/21 18:30 01/20/21 18:31 DC 01/20/21 18:51 10 MG Sodium Chloride 1,000 ml @ 1,000 mls/hr 1X ONCE 01/20/21 18:30 01/20/21 19:29 DC 01/20/21 18:52 1,000 MLS/HR Allergies: Allergies: Allergies Coded Allergies Type Severity Reaction Last Updated Verified Sulfa (Sulfonamide Antibiotics) Allergy Intermediate 05/01/15 Yes Physical Exam: PE: Constitutional: Well developed, well nourished, no acute distress, non-toxic appearance. [] HENT: Normocephalic, atraumatic, bilateral external ears normal, nose normal. [] Eyes: PERRLA, conjunctiva normal, no discharge. [] Neck: No rigidity, supple, no stridor. [] Cardiovascular: Regular rate and rhythm, brisk cap refill [] Lungs & Thorax: Non labored symmetric respirations, no tachypnea or respiratory distress [] Abdomen: Soft, nondistended, no guarding or tenderness to palpation. Skin: Warm, dry, no erythema, no rash. [] Back: Unremarkable Extremities: No deformities, range of motion grossly intact, no lower extremity edema [] Neurologic: Alert and oriented X 3, no focal deficits noted. Cranial nerves intact. Normal sensation on face [] Psychologic: Affect normal, judgement normal, mood normal. [] Current Patient Data: Labs: Laboratory Tests Test 01/20/21 17:45 01/20/21 18:21 01/20/21 19:00 01/20/21 19:40 Urine Collection Type Unknown Urine Color Yellow Urine Clarity Clear Urine pH 6.5 (<5.0-8.0) Urine Specific [place] 1.020 (1.000-1.030) Urine Protein Negative mg/dL (NEG-TRACE) Urine Glucose (UA) Negative mg/dL (NEG) Urine Ketones (Stick) 15 mg/dL (NEG) Urine Blood Negative (NEG) Urine Nitrite Negative (NEG) Urine Bilirubin Negative (NEG) Urine Urobilinogen Dipstick 1.0 mg/dL (0.2 mg/dL) Urine Leukocyte Esterase Small (NEG) Urine RBC Occ /HPF (0-2) Urine WBC 1-4 /HPF (0-4) Urine Squamous Epithelial Cells Mod /LPF Urine Bacteria 0 /HPF (0-FEW) Urine Mucus Mod /LPF POC Urine HCG, Qualitative Hcg negative (Negative) White Blood Count 6.9 x10^3/uL (4.0-11.0) Red Blood Count 4.58 x10^6/uL (3.50-5.40) Hemoglobin 14.2 g/dL (12.0-15.5) Hematocrit 42.2 % (36.0-47.0) Mean Corpuscular Volume 92 fL (79-100) Mean Corpuscular Hemoglobin 31 pg (25-35) Mean Corpuscular Hemoglobin Concent 34 g/dL (31-37) Red Cell Distribution Width 13.0 % (11.5-14.5) Platelet Count 230 x10^3/uL (140-400) Neutrophils (%) (Auto) 52 % (31-73) Lymphocytes (%) (Auto) 34 % (24-48) Monocytes (%) (Auto) 9 % (0-9) Eosinophils (%) (Auto) 3 % (0-3) Basophils (%) (Auto) 2 % (0-3) Neutrophils # (Auto) 3.6 x10^3/uL (1.8-7.7) Lymphocytes # (Auto) 2.4 x10^3/uL (1.0-4.8) Monocytes # (Auto) 0.6 x10^3/uL (0.0-1.1) Eosinophils # (Auto) 0.2 x10^3/uL (0.0-0.7) Basophils # (Auto) 0.1 x10^3/uL (0.0-0.2) Sodium Level 143 mmol/L (136-145) Potassium Level 3.9 mmol/L (3.5-5.1) Chloride Level 108 mmol/L (98-107) H Carbon Dioxide Level 24 mmol/L (21-32) Anion Gap 11 (6-14) Blood Urea Nitrogen 9 mg/dL (7-20) Creatinine 1.0 mg/dL (0.6-1.0) Estimated GFR (Cockcroft-Gault) 79.9 BUN/Creatinine Ratio 9 (6-20) Glucose Level 82 mg/dL (70-99) Calcium Level 9.0 mg/dL (8.5-10.1) Magnesium Level 2.3 mg/dL (1.8-2.4) Total Bilirubin 0.3 mg/dL (0.2-1.0) Aspartate Amino Transferase (AST) 12 U/L (15-37) L Alanine Aminotransferase (ALT) 20 U/L (14-59) Alkaline Phosphatase 52 U/L (46-116) Troponin I Quantitative < 0.017 ng/mL (0.000-0.055) Total Protein 6.6 g/dL (6.4-8.2) Albumin 4.1 g/dL (3.4-5.0) Albumin/Globulin Ratio 1.6 (1.0-1.7) D-Dimer (Kristy) < 0.27 ug/mlFEU Laboratory Tests 01/20/21 19:00 Laboratory Tests 01/20/21 19:00 Microbiology 01/20/21 Wet Prep - Final, Complete Vital Signs: Vital Signs Date Time Temp Pulse Resp B/P (MAP) Pulse Ox O2 Delivery O2 Flow Rate FiO2 01/20/21 18:17 61 18 131/84 (100) 98 Room Air EKG: EKG: Sinus rhythm, heart rate 69 bpm, normal axis, no ectopy. No ST elevation or depression [] Heart Score: C/O Chest Pain: Yes HEART Score for Chest Pain: HEART Score for Chest Pain Response (Comments) Value History Slighlty/Non-Suspicious 0 ECG Nonspecific Repolarizatio 1 Age < 45 0 Risk Factors 1 or 2 Risk Factors 1 Troponin < Normal Limit 0 Total 2 Risk Factors: Risk Factors: DM, Current or recent (<one month) smoker, HTN, HLP, family history of CAD, obesity. Risk Scores: Score 0 - 3: 2.5% MACE over next 6 weeks - Discharge Home Score 4 - 6: 20.3% MACE over next 6 weeks - Admit for Clinical Observation Score 7 - 10: 72.7% MACE over next 6 weeks - Early Invasive Strategies Radiology/Procedures: Radiology/Procedures: [facility] [address] [place] [address] IMAGING REPORT Signed PATIENT: LILLY MORAN ACCOUNT: [id number] : 1990 LOCATION: ER AGE: 30 SEX: F EXAM STATUS: REG ER ORD. PHYSICIAN: BARNEY HLOM MD REASON: migraine PROCEDURE: CT HEAD WO CONTRAST CT HEAD/BRAIN WO dated 01/20/2021 7:21 PM. Comparison: None. Clinical Indication: Reason: migraine / Spl. Instructions: / History: Technical factors: Contiguous 5 mm axial images of the head were obtained from the skullbase to the vertex. No contrast was administered. Findings: Ventricles and sulci are within normal limits for age. No evidence of ventricular shift or mass effect. Brain parenchyma is of normal attenuation. There is no evidence of hemorrhage or extra-axial collection. Visualized paranasal sinuses and mastoid air cells are clear. No acute osseous abnormality. Impression: No evidence of acute intracranial abnormality. Electronically signed by: Duane Gunn Jr., MD (01/20/2021 7:40 PM) [facility] DICTATED and SIGNED BY: DUANE GUNN Jr, MD DATE: 01/20/21 [id number] [] Course & Med Decision Making: Course & Med Decision Making Pertinent Labs and Imaging studies reviewed. (See chart for details) [] Headache resolved with medications. Valentine Disclaimer: Valentine Disclaimer: This electronic medical record was generated, in whole or in part, using a voice recognition dictation system. Departure Departure Impression: Primary Impression: Bacterial vaginosis Additional Impressions: Migraine Constipation Disposition: HOME / SELF CARE / HOMELESS Condition: IMPROVED Referrals: NO PCP (PCP) Patient Instructions: Bacterial Vaginosis Scripts Polyethylene Glycol 3350 (MIRALAX) 119 Gm Powder 17 GM PO DAILY for constipation, #255 GM 0 Refills dissolve in water Prov: BARNEY HOLM MD 01/20/21 Metronidazole (METRONIDAZOLE) 500 Mg Tablet 1 TAB PO BID for antibiotic for 7 Days, #14 TAB 0 Refills Prov: BARNEY HOLM MD 01/20/21 Problem Qualifiers BARNEY HOLM MD Jan 20, 2021 18:35
[2021-01-20 18:44] LABS: BILIRUBIN,URINE NEGATIVE (NEG); CLARITY,URINE CLEAR; COLOR,URINE YELLOW; NITRITE,URINE NEGATIVE (NEG); PH,URINE 6.5 (<5.0-8.0); PROTEIN,URINE NEGATIVE (NEG-TRACE)
[2021-01-20 19:04] LABS: BASO # 0.1 x10^3/uL (0.0-0.2); BASO % 2 % (0-3); EOS # 0.2 x10^3/uL (0.0-0.7); EOS % 3 % (0-3); HEMATOCRIT 42.2 % (36.0-47.0); HEMOGLOBIN 14.2 g/dL (12.0-15.5); LYMPH # 2.4 x10^3/uL (1.0-4.8); LYMPH % 34 % (24-48); MEAN CORPUSCULAR HEMOGLOBIN 31 pg (25-35); MEAN CORPUSCULAR HGB CONC 34 g/dL (31-37); MEAN CORPUSCULAR VOLUME 92 fL (79-100); MONO # 0.6 x10^3/uL (0.0-1.1); MONO % 9 % (0-9); NEUT # 3.6 x10^3/uL (1.8-7.7); NEUT % 52 % (31-73); PLATELET COUNT 230 x10^3/uL (140-400); RED BLOOD COUNT 4.58 x10^6/uL (3.50-5.40); WHITE BLOOD COUNT 6.9 x10^3/uL (4.0-11.0)
[2021-01-20 19:05] LABS: BACTERIA,URINE 0 /HPF (0-FEW); RBC,URINE OCC /HPF (0-2)
[2021-01-20 19:14] LABS: GFR 79.9; POTASSIUM 3.9 mmol/L (3.5-5.1)
[2021-01-20 19:28] LABS: ALBUMIN 4.1 g/dL (3.4-5.0); ALBUMIN/GLOBULIN RATIO 1.6 (1.0-1.7); MAGNESIUM 2.3 mg/dL (1.8-2.4); TOTAL BILIRUBIN 0.3 mg/dL (0.2-1.0); TOTAL PROTEIN 6.6 g/dL (6.4-8.2)
--- NOTE | 2021-01-20 19:42 | RAD ---
CT HEAD/BRAIN WO dated 01/20/2021 7:21 PM. Comparison: None. Clinical Indication: Reason: migraine / Spl. Instructions: / History: Technical factors: Contiguous 5 mm axial images of the head were obtained from the skullbase to the vertex. No contrast was administered. Findings: Ventricles and sulci are within normal limits for age. No evidence of ventricular shift or mass effec t. Brain parenchyma is of normal attenuation. There is no evidence of hemorrhage or extra-axial colle ction. Visualized paranasal sinuses and mastoid air cells are clear. No acute osseous abnormality. Impression: No evidence of acute intracranial abnormality. Electronically signed by: Raghav Chase Jr., MD (01/20/2021 7:40 PM) [facility]
[2021-01-20] MEDS ORDERED: POLY119P4 PO (20:52)
[2021-01-20] MEDS ORDERED: METR-34 PO (20:52)
--- NOTE | 2021-01-21 02:07 | RAD ---
XR ABDOMEN COMP ACUTE INDICATION: Reason: constipation, bloating / Spl. Instructions: / History: . COMPARISON STUDY: None. FINDINGS: Lungs: Normal lung volume. No pulmonary mass or consolidation. The tracheobronchial tree and hilar st ructures are normal. Pleura: No pleural effusion or pneumothorax. Heart and Mediastinum: The cardiomediastinal silhouette is normal. The great vessels of the thorax ar e normal. Abdomen: Nonobstructive bowel gas pattern. Moderate colonic stool burden. No free air. IMPRESSION: Nonobstructive bowel gas pattern. Moderate colonic stool burden. No consolidation. Electronically signed by: Umang Garcia MD (01/21/2021 2:05 AM) [facility]
--- NOTE | 2021-01-21 06:22 | EKG ---
[facility] [address] [place] [address] Test Date: 2021-01-20 Test Time: 18:15:00 Pat Name: LILLY MORAN Department: Room: Gender: F Senior [employer] Developer: : 1990 Requested By: BARNEY HOLM Order Number: [id number] Reading MD: Measurements Intervals Bryan Rate: 69 P: 47 TN: 132 QRS: 66 QRSD: 78 T: 41 QT: 404 QTc: 434 Interpretive Statements SINUS RHYTHM QRS(T) CONTOUR ABNORMALITY CONSIDER ANTEROSEPTAL MYOCARDIAL DAMAGE POSSIBLY ABNORMAL ECG RI6.01 No previous ECG available for comparison
[2021-01-23 00:09] LABS: GC PROBE Negative (Negative)
== END 2021-01-20 21:17 | disposition home or self-care (01) ==
LOC: ER 17:43
DX: G43.909 Migraine, unspecified, not intractable, without status migrainosus (principal); K59.00 Constipation, unspecified; N76.0 Acute vaginitis; B96.89 Other specified bacterial agents as the cause of diseases classified elsewhere; F17.200 Nicotine dependence, unspecified, uncomplicated
CPT/HCPCS: 70450; 74022; 80053; 81001; 81025; 83735; 84484; 85025; 85379; 87086; 87491; 87591; 93005; 96361; 96374; 96375; 99285; J0780; J1200; J1885; J7030; Q0111

== ENCOUNTER 2021-12-11 10:11 | Emergency (ER) | payer OTHER ==
[~2021-12-11] VITALS: Ht 160 cm; Wt 67.3 kg
[~2021-12-11 10:11] MED LIST changes: +METR-34 PO; +POLY119P4 PO
[2021-12-11 10:27] VITALS: BP 126/77
[2021-12-11] MEDS ORDERED: IV NORMAL SALINE 1000ML BAG 1,000 ML IV ONE (10:45)
[2021-12-11] MEDS ORDERED: KETOROLAC 30 MG/ML VIAL. IVP ONE (11:00)
--- NOTE | 2021-12-11 12:03 | PHYS DOC ---
Past Medical History Past Medical History: No Pertinent History Past Surgical History: No Surgical History Smoking Status: Current Every Day Smoker Alcohol Use: Occasionally Drug Use: Marijuana General Adult EDM: Chief Complaint: NECK PAIN HPI: HPI: Patient is a 31-year-old female who presents today with right-sided facial, head, and neck pain. Patient states the symptoms started probably 2 to 3 days ago, she states she saw her primary care physician yesterday and her primary care physician stated that this could be stress related and to take vooz-[id number]-[id number] ibuprofen and Tylenol. Patient arrives today to the emergency department for further evaluation and management of this pain. Patient denies ear pain, fever chills, dental pain, shortness of breath, or chest pain. Review of Systems: Review of Systems: Constitutional: Denies fever or chills. [] Eyes: Denies change in visual acuity. [] HENT: Right facial pain denies nasal congestion or sore throat. [] Respiratory: Denies cough or shortness of breath. [] Cardiovascular: Denies chest pain or edema. [] GI: Denies abdominal pain, nausea, vomiting, bloody stools or diarrhea. [] : Denies dysuria. [] Musculoskeletal: Right neck pain denies back pain or joint pain. [] Integument: Denies rash. [] Neurologic: Right head pain denies headache, focal weakness or sensory changes. [] Endocrine: Denies polyuria or polydipsia. [] Lymphatic: Denies swollen glands. [] Psychiatric: Denies depression or anxiety. [] Heart Score: C/O Chest Pain: No Risk Factors: Risk Factors: DM, Current or recent (<one month) smoker, HTN, HLP, family history of CAD, obesity. Risk Scores: Score 0 - 3: 2.5% MACE over next 6 weeks - Discharge Home Score 4 - 6: 20.3% MACE over next 6 weeks - Admit for Clinical Observation Score 7 - 10: 72.7% MACE over next 6 weeks - Early Invasive Strategies Current Medications: Current Medications Medications (Trade) Dose Ordered Sig/Dangelo Start Time Stop Time Status Last Admin Dose Admin Ketorolac Tromethamine (Toradol 30mg Vial) 30 mg 1X ONCE 12/11/21 11:00 12/11/21 11:01 DC 12/11/21 11:19 30 MG Sodium Chloride 1,000 ml @ 999 mls/hr 1X ONCE 12/11/21 10:45 12/11/21 11:45 DC 12/11/21 11:17 999 MLS/HR Allergies: Allergies: Allergies Coded Allergies Type Severity Reaction Last Updated Verified Sulfa (Sulfonamide Antibiotics) Allergy Intermediate 05/01/15 Yes Physical Exam: PE: Constitutional: Well developed, well nourished, no acute distress, non-toxic appearance. [] HENT: Normocephalic, atraumatic, bilateral external ears normal, bilateral tympanic membranes are clear with no signs and symptoms of infection, patient has point tenderness at the TMJ on the right side, no dental caries noted oropharynx moist, no oral exudates, nose normal. [] Eyes: PERRLA, EOMI, conjunctiva normal, no discharge. [] Neck: Normal range of motion, no midline tenderness located tenderness located over the trapezius muscle on the right side Cardiovascular:Heart rate regular rhythm, no murmur [] Lungs & Thorax: Bilateral breath sounds clear to auscultation [] Abdomen: Bowel sounds normal, soft, no tenderness, no masses, no pulsatile masses. [] Skin: Warm, dry, no erythema, no rash. [] Back: No tenderness, no CVA tenderness. [] Extremities: No tenderness, no cyanosis, no clubbing, ROM intact, no edema. [] Neurologic: Alert and oriented X 3, normal motor function, normal sensory function, no focal deficits noted. [] Psychologic: Affect normal, judgement normal, mood normal. [] Current Patient Data: Labs: Laboratory Tests Test 12/11/21 11:05 Bedside Urine HCG, Qualitative Hcg negative Current Medications Medications (Trade) Dose Ordered Sig/Dangelo Route PRN Reason Start Time Stop Time Status Last Admin Dose Admin Sodium Chloride 1,000 ml @ 999 mls/hr 1X ONCE IV 12/11/21 10:45 12/11/21 11:45 DC 12/11/21 11:17 999 MLS/HR Ketorolac Tromethamine (Toradol 30mg Vial) 30 mg 1X ONCE IVP 12/11/21 11:00 12/11/21 11:01 DC 12/11/21 11:19 30 MG Laboratory Tests Test 12/11/21 11:05 POC Urine HCG, Qualitative Hcg negative (Negative) Vital Signs: Vital Signs Date Time Temp Pulse Resp B/P (MAP) Pulse Ox O2 Delivery O2 Flow Rate FiO2 12/11/21 10:27 98.6 78 16 126/77 (93) 96 Room Air 98.6 EKG: EKG: [] Radiology/Procedures: Radiology/Procedures: [] Course & Med Decision Making: Course & Med Decision Making Pertinent Labs and Imaging studies reviewed. (See chart for details) 1155 reassessment, patient states her pain is a 2 out of 10 she says she feels much better, patient having a lot of TMJ type point tenderness, I did inform her she may be clenching her jaw in the middle the night causing referred pain to the right side of her face. Patient is encouraged to possibly get a bite block to see if that will help her headache pain, to take Tylenol and ibuprofen [id number] as directed and to follow-up with her primary care for further evaluation and management of this. Patient verbalizes understanding of this and agreeable with plan of care. Dragon Disclaimer: Dragon Disclaimer: This electronic medical record was generated, in whole or in part, using a voice recognition dictation system. Departure Departure Impression: Primary Impression: TMJ (sprain of temporomandibular joint) Qualified Codes: S03.40XA - Sprain of jaw, unspecified side, initial encounter Disposition: HOME / SELF CARE / HOMELESS Condition: STABLE Referrals: NO PCP (PCP) Patient Instructions: Temporomandibular Joint Pain-Brief Additional Instructions: Lacd-myx-[id number] bite block to help prevent teeth grinding at night [id number] Tylenol and/or ibuprofen as needed for pain Follow-up with your primary care physician Dr. Blount for further evaluation and management of this pain Return to the emergency department should you develop a fever, shortness of breath, or chest pain. [employer] December 11, 2021 12:03
== END 2021-12-11 13:28 | disposition home or self-care (01) ==
LOC: ER 10:11
DX: S03.40XA Sprain of jaw, unspecified side, initial encounter (principal); F17.200 Nicotine dependence, unspecified, uncomplicated; Z88.2 Allergy status to sulfonamides; X58.XXXA Exposure to other specified factors, initial encounter; Y93.89 Activity, other specified; Y92.89 Other specified places as the place of occurrence of the external cause; Y99.8 Other external cause status
CPT/HCPCS: 81025; 96361; 96374; 99283; J1885; J7030